=== PATIENT | female | born 2005 | race Caucasian/White ===

== ENCOUNTER 2023-06-06 08:26 | Outpatient (REF) | payer OTHER, SELFPAY ==
[2023-06-06 09:01] LABS: MANUAL DIFF FLAG NO
[2023-06-06 10:43] LABS: Basophils Absolute Auto 0.1 X10*3/uL (0.0-0.2); Basophils Percent Auto 0.6 % (0-2); Eosinophils Absolute Auto 0.3 X10*3/uL (0.0-0.4); Eosinophils Percent Auto 3.3 % (0-4); Hematocrit 39.8 % (37.0-47.0); Hemoglobin 11.9 g/dl (12.0-16.0); Imm Gran Abs Auto 0.05 X10*3/uL (0.00-0.03); Imm Gran Pct Auto 0.5 % (0.0-0.4); Lymphocytes Absolute Auto 1.7 X10*3/uL (1.2-4.9); Lymphocytes Percent Auto 18.4 % (20-40); Mean Corpuscular HGB Conc 29.9 g/dl (31.0-35.0); Mean Corpuscular Hemoglobin 22.7 pg (27.0-33.0); Mean Platelet Volume 9.2 fL (9.4-12.3); Monocytes Absolute Auto 0.6 X10*3/uL (0.1-1.2); Monocytes Percent Auto 6.1 % (2-11); Neutrophils Absolute Auto 6.7 x10*3/uL (2.0-8.3); Neutrophils Percent Auto 71.1 % (45-73); Platelet Count 300 X10*3/uL (160-400); Red Blood Count 5.24 X10*6/uL (4.20-5.50); Red Cell Distribution Width 16.6 % (11.0-16.0); White Blood Count 9.4 X10*3/uL (4.8-10.8)
[2023-06-06 11:05] LABS: Estimated Average Glucose 108 mg/dL; Hemoglobin A1c % 5.4 % (<6.0)
[2023-06-06 11:15] LABS: Anion Gap 16 (12-20)
[2023-06-06 11:20] LABS: Alanine Aminotransferase 15 U/L (0-31); Albumin Level 4.4 g/dL (3.5-5.0); Alkaline Phosphatase 126 U/L (39-117); Aspartate Amino Transferase 14 U/L (5-31); Bilirubin Total 0.3 mg/dL (0.0-1.0); Blood Urea Nitrogen 17 mg/dL (9-16); Calcium 9.4 mg/dL (8.4-10.2); Carbon Dioxide 22 mmol/L (22-29); Chloride 105 mmol/L (96-108); Cholesterol 176 mg/dL (<200); Estimated Glomerular Filt Rate > 60; Glucose Fasting 88 mg/dL (60-99); Magnesium 2.1 mg/dL (1.6-2.6); Phosphorus 2.7 mg/dL (2.7-4.5); Potassium 4.1 mmol/L (3.3-5.1); Sodium 139 mmol/L (135-145); Total Protein 7.7 g/dL (6.5-8.0); Triglycerides 60 mg/dL (<150)
[2023-06-06 11:32] LABS: HCG Quantitative < 2 mIU/mL; TSH reflex Free T4 3.61 uIU/mL (0.32-4.0); Vitamin D 25-OH Total 29.7 ng/mL (>30)
[2023-06-06 11:41] LABS: HDL Cholesterol 55 mg/dL (>40); LDL Cholesterol Calculated 109 mg/dL (<100)
[2023-06-06 12:00] LABS: Folate 5.1 ng/mL (> or = 4.0); Vitamin B12 507 pg/mL (200-900)
[2023-06-09 10:09] LABS: Prolactin 11.2 ng/mL
[2023-06-09 11:38] LABS: Oxcarbazepine 17.7 mcg/mL (8.0-35.0)
== END 2023-06-06 08:27 | disposition home or self-care (01) ==
LOC: HO.LAB 08:26
PROVIDERS: PCP Psychiatry & Neurology Psychiatry; Visit Provider Psychiatry & Neurology Psychiatry
DX: F39 Unspecified mood [affective] disorder (principal)
CPT/HCPCS: 36415; 80053; 80061; 80339; 82306; 82607; 82746; 83036; 83735; 84100; 84134; 84146; 84443; 84702; 85025

== ENCOUNTER 2023-06-07 09:15 | Outpatient (RCR) | payer OTHER, SELFPAY ==
[2023-05-20 09:29] VITALS: BP 104/70; PULSE 88; TEMP 36.9
--- NOTE | 2023-05-20 10:26 | PC.ADMIT ---
Patient is a 17 year old single female who was referred to [facility] by her Prescriber d/t increased depression, anxiety, and spending a lot of time in bed. 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 Currently patient presents with depressed mood and anxious affect. She reports some passive thoughts to harm herself however denied any plans or intention of doing this. She reports when cooking she has thoughts to burn her finger to get rid of emotional pain however she stated she would not do this. She does have a history of self harm by cutting her wrists however she reports she has not done this in a very long time. Denied any thoughts to kill herself. She was given a copy of her safety plan if needed. Patient reports that her family (mother, father and sister) whom she lives with are supportive. Reports she has a boyfriend who is currently visiting relatives out of state is supportive. She reports history of bullying and is struggling with low self esteem reports that she hates herself and wants to work on this at [facility]. Medications reconciled with patient, patient's pharmacy, and patient's father whom we called on the phone to confirm medications. Patient reports she is taking medications as prescribed and is supported by her father when taking medications.
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
--- NOTE | 2023-05-25 13:37 | HO.IOP ---
IOP staff member faxed the referral for OP therapy to [facility] in [facility]. IOP staff member is awaiting a call back with the scheduled date and time.
--- NOTE | 2023-05-30 11:23 | HO.IOP ---
IOP staff member followed up with Hansa due to her making comments within the first group around not wanting to be on this planet anymore. IOP staff member explored what she meant by that. Hansa disclosed that she has no suicidal thoughts, plan or intent and disclosed when she gets depressed, she will make comments around how she is feeling in that moment. Hansa reiterated that she has no SI, plan or intent. IOP staff member explored with Hansa if it developed into SI, plan or intent, does she have supports. Hansa reported that she can call crisis or talk to her parents. Hansa disclosed that she speaks to her parents whenever she is struggling. IOP staff member also informed her that if she is struggling at any point to inform staff and we could have her assessed. Hansa was receptive. Hansa returned to group two.
--- NOTE | 2023-05-30 20:14 | P.PNPSP_ITS ---
Subjective Subjective Date of Service: 05/30/23 Reason For Visit: depression,anxiety Interim History: Not great, lost my job on Tuesday (at [email or web address]) . Says they hired her knowing that she was lacking experience but says the employer changed their mind saying they didnt think they would in fact have time to train them. She reports her mood was otherwise fine this morning until everything started pissing me off . She says she is particularly triggered by another patient in the program whom she finds very annoying every time she opens her mouth . Also reports anxiety as terrible , fairly consistently throughout the day. Endorses impulsive thoughts such as engaging in purging and restricting behaviors but has been able to resist thus far. Denies any urges to self harm, denies SI, denies AI. Sleep and appetite are variable. Mood stable. Has not been on a higher dose of Vraylar iver 3 mg before. Wellbutrin used to be higher but was causing hot flashes . Escit.alopram and oxcarbazepine have been at current doses for a while (can not recall the last time these doses were changed) Medication Compliance: Yes Side effects from medications: No Attending Groups: Yes Review of Systems Acute medical concerns: No Mental Status Exam Mental Status Exam Narrative: Alert, oriented, in no acute distress. Calm, cooperative, engaged. Mood anxious, irritable, labile. Affect constricted, without irritability or lability noted. Speech normal. Thought process linear, coherent. Thought content related to stressors, endorses feelings of helplessness, worthlessness, transient hopelessness, denies SI.? No aggressive ideation or HI. No paranoia or d elusional content elicited. No evidence of psychosis. Insight and judgment fair but adequate. Assessment & Plan Assessment & Plan (1) Borderline personality disorder: Status: Acute Code(s): F60.3 - Borderline personality disorder (2) Dysthymia: Status: Acute Code(s): F34.1 - Dysthymic disorder (3) Eating disorder, unspecified: Status: Acute Code(s): F50.9 - Eating disorder, unspecified Assessment and Plan: r/o Bulimia r/o body dysmorphic disorder (4) Other disorder of impulse control: Status: Acute Code(s): F63.89 - Other impulse disorders Assessment and Plan: r/o ADHD r/o NVLD/non-verbal learning disability Plan start guanfacine ER 1 mg qd increase Vraylar to 4.5 mg qd cont amantadine 100 mg qhs (previously at 200 mg, she is unsure what this is rxed for (denies hx shaking, trembling, motor tics, dyskinesia). ?ADHD since she is also on WB SR) Continue to monitor as per protocol Patient educated on: diagnosis and medication risk/benefits Informed Consent: understands Reason for contiued partial hosp. stay Substantial Risk for: inability to function, rapid decompensation and med/psych decompensation Certification I certify that partial hospital treatment is medically necessary due to the symptoms and problems resulting from the patient's mental illness and the failure to treat the patient at the partial hospital level of care would likely result in the patient requiring inpatient psychiatric care which could not be prevented at a less intensive level of care. Total time managing care of this patient today __30__ minutes. Discharge Plan Discharge Attending provider: Nury Link Medications: New Vraylar 4.5 mg capsule 4.5 mg PO DAILY Qty: 30 0RF guanfacine 1 mg tablet extended release 24 hr 1 mg PO DAILY Qty: 20 0RF No Action bupropion HCl 150 mg tablet sustained-release 12 hr 150 mg PO QAM amantadine HCl 100 mg capsule 100 mg PO BEDTIME Patient Comments: Patient's father Earle stated this medication was decreased to one tab at bedtime. oxcarbazepine 600 mg tablet 600 mg PO BID hydroxyzine HCl 25 mg tablet 25 - 50 mg PO BEDTIME PRN (Reason: Anxiety) escitalopram oxalate 20 mg tablet 20 mg PO QAM Vraylar 3 mg capsule 3 mg PO BEDTIME Patient Comments: Patient stated she gets samples of Vraylar from her prescriber. Stand Alone Forms: Patient Portal Discharge page Print Language: Chinese Telehealth Telehealth Telehealth Platform: Other (please specify) (Virtual) Location of provider rendering services: other (private office) Location of patient: other ([facility]) Patient Identification confirmed using: Name, : Yes Telehealth method: video Patient verbally consented to treatment: Yes
--- NOTE | 2023-06-06 14:08 | HO.IOP ---
IOP staff member received a phone call from [facility] with Hansa's OP therapy appointment which is scheduled June 15, 2023 at [address] [place] [address] with Batsheva Mohamud.
--- NOTE | 2023-06-07 23:47 | HO.PHPPROGNO ---
Subjective Subjective Date of Service: 06/07/23 Reason For Visit: depression,anxiety Interim History: Patient seen for follow-up, anticipating discharge at the end of program today.? Mood has been good, I'm really happy because I got rid of that toxic (friend) . She appreciates that she has one good friend and a supportive BF. She talks about avoiding drama and toxic people. She also talks about continuing to working on her self esteem. We discussed her diagnoses of cPTSD with some Borderline traits, as well as ADHD, unspecified. I suggest at some point she should undergo neuropsych testing to elucidate area of strength and deficits. Reports no acute issues or concerns. Medication compliant, medications well-tolerated. Denies any adverse effects.? Mood is stable, reports her mood stability has improved from a 1-2 out of 10 to a solid 6 . .? Denies any hopelessness or SI. Denies thoughts of harming self or others at this time. Denies any aggressive ideation or HI. Denies any paranoia or AH or VH. Sleep, appetite, energy stable. Medication Compliance: Yes Side effects from medications: No Attending Groups: Yes Review of Systems Acute medical concerns: No Mental Status Exam Mental Status Exam Narrative: Alert, oriented, in no acute distress. Calm, cooperative. Mood stable, affect appropriate. Speech normal. Thought process linear, coherent, more goal-directed. Thought content related to stressors, future-oriented, denies any helplessness, hopelessness or SI.? No aggressive ideation or HI. No paranoia or delusional content elicited. No evidence of psychosis. Insight and judgment fair-good. Assessment & Plan Assessment & Plan (1) Attention-deficit hyperactivity disorder, unspecified type: Status: Acute Code(s): F90.9 - Attention-deficit hyperactivity disorder, unspecified type (2) Borderline personality disorder: Status: Acute Code(s): F60.3 - Borderline personality disorder Assessment and Plan: Borderline traits (3) Dysthymia: Status: Acute Code(s): F34.1 - Dysthymic disorder (4) Eating disorder, unspecified: Status: Acute Code(s): F50.9 - Eating disorder, unspecified Assessment and Plan: r/o Bulimia r/o body dysmorphic disorder (5) Other disorder of impulse control: Status: Acute Code(s): F63.89 - Other impulse disorders Assessment and Plan: r/o ADHD r/o NVLD/non-verbal learning disability Plan Discharge from [facility] continue regular medications continue Ritalin 5 - 7.5 mg qd for up to 3x/week for now (will defer to OP provider to further adjust Ritalin) continue guanfacine ER 1 mg qAM Has an appointment with Batsheva Mohamud on 06/14 at 11am will defer further medication management to outpatient provider Refills sent to pharmacy Patient educated on: diagnosis, medication risk/benefits and other (DBT) Informed Consent: understands Reason for contiued partial hosp. stay Substantial Risk for: stable for discharge Certification I certify that partial hospital treatment is medically necessary due to the symptoms and problems resulting from the patient's mental illness and the failure to treat the patient at the partial hospital level of care would likely result in the patient requiring inpatient psychiatric care which could not be prevented at a less intensive level of care. Total time managing care of this patient today __30__ minutes. Discharge Plan Discharge Attending provider: Nury Link Medications: New Vraylar 4.5 mg capsule 4.5 mg PO DAILY Qty: 30 0RF guanfacine 1 mg tablet extended release 24 hr 1 mg PO DAILY Qty: 20 0RF methylphenidate HCl [Ritalin] 5 mg tablet 5 mg PO QAM Qty: 10 0RF Rx Instructions: Partial Fill upon patient request. Continued bupropion HCl 150 mg tablet sustained-release 12 hr 150 mg PO QAM amantadine HCl 100 mg capsule 100 mg PO BEDTIME Patient Comments: Patient's father Earle stated this medication was decreased to one tab at bedtime. oxcarbazepine 600 mg tablet 600 mg PO BID hydroxyzine HCl 25 mg tablet 25 - 50 mg PO BEDTIME PRN (Reason: Anxiety) escitalopram oxalate 20 mg tablet 20 mg PO QAM No Action Vraylar 3 mg capsule 3 mg PO BEDTIME Patient Comments: Patient stated she gets samples of Vraylar from her prescriber. Stand Alone Forms: Patient Portal Discharge page Patient Education: Mood Disorders (DC), ADHD in Adults (ED), Dysthymic Disorder (ED), Borderline Personality Disorder (DC), Borderline Personality Disorder (GEN) Print Language: Latvian
== END 2023-06-07 23:59 | disposition home or self-care (01) ==
LOC: HO.IOP 09:15
PROVIDERS: Visit Provider Psychiatry & Neurology Psychiatry
DX: F90.9 Attention-deficit hyperactivity disorder, unspecified type (principal); F60.3 Borderline personality disorder; F34.1 Dysthymic disorder; F50.9 Eating disorder, unspecified; F63.89 Other impulse disorders; Z79.899 Other long term (current) drug therapy
CPT/HCPCS: 90791; S9480